=== PATIENT | female | born 1975 | race Caucasian/White ===

== ENCOUNTER → 2020-11-02 09:46 | Outpatient (CLI) | payer MEDICARE, SELFPAY | PROVIDERS: Visit Provider Physician Assistant Medical | DX: N39.0 Urinary tract infection, site not specified (principal) | CPT/HCPCS: 87086 ==

== ENCOUNTER → 2020-11-23 08:56 | Outpatient (CLI) | payer MEDICARE, SELFPAY ==
[2020-11-23 19:05] LABS: Add Manual Diff / Slide Review NO; Basophils Absolute Auto 100 /uL (0-100); Basophils Percent Auto 1.1 % (0-2); Eosinophils Absolute Auto 200 /uL (0-450); Eosinophils Percent Auto 2.8 % (2-4); Hematocrit 44.3 % (36-46); Hemoglobin 14.9 g/dL (12.0-16.0); Lymphocytes Absolute Auto 3500 /uL (1100-4500); Lymphocytes Percent Auto 43.6 % (25-40); Mean Corpuscular HGB Conc 33.7 % (30-36); Mean Corpuscular Hemoglobin 34.4 PG (26-34); Mean Corpuscular Volume 102.2 fL (80-100); Monocytes Absolute Auto 400 /uL (0-900); Monocytes Percent Auto 5.3 % (3-14); Neutrophils Absolute Auto 3800 /uL (1500-7000); Neutrophils Percent Auto 47.2 % (50-75); Platelet Count 335 X10^3/uL (150-400); Red Blood Cell Count 4.33 X10^6/uL (4.0-5.2); Red Cell Distribution Width 14.5 % (11.6-14.8)
[2020-11-23 19:13] LABS: Alanine Aminotransferase 25 IU/L (<35); Albumin 4.7 g/dL (3.5-5.0); Albumin Globulin Ratio 1.3 (1.0-2.8); Alkaline Phosphatase 104 U/L (38-126); Aspartate Aminotransferase 58 IU/L (14-36); BUN Creatinine Ratio 11.4 (6-22); Bilirubin Total 0.5 mg/dL (0.2-1.3); Blood Urea Nitrogen 13 mg/dL (7-17); Calcium 10.3 mg/dL (8.4-10.2); Carbon Dioxide 31 mmol/L (22-32); Chloride 102 mmol/L (98-107); Estimated Glomerular Filt Rate 51.1 mL/min (>60); Globulin 3.6 g/dL (1.7-4.1); Glucose 87 mg/dL (70-100); HEMOLYSIS < 15 (0-50); Potassium 4.5 mmol/L (3.4-5.1); Sodium 142 mmol/L (137-145); Total Protein 8.3 g/dL (6.3-8.2)
[2020-11-23 19:28] LABS: Hemoglobin A1C% w Est Avg Glu 4.8 % (4.0-6.0)
[2020-11-23 19:30] LABS: Free T4, Direct Thyroxine 0.08 ng/dL (0.78-2.19)
[2020-11-24 00:31] LABS: Thyroid Stimulating Hormone 107 uIU/mL (0.47-4.68)
== END ==
PROVIDERS: PCP Family Medicine; Visit Provider Family Medicine
DX: E03.9 Hypothyroidism, unspecified (principal); R73.09 Other abnormal glucose; I10 Essential (primary) hypertension
CPT/HCPCS: 80053; 83036; 84439; 84443; 85025

== ENCOUNTER → 2021-03-27 09:42 | Outpatient (CLI) | payer MEDICARE, SELFPAY ==
[2021-03-27 20:45] LABS: Free T4, Direct Thyroxine 0.53 ng/dL (0.78-2.19)
[2021-03-27 21:00] LABS: Thyroid Stimulating Hormone 42.3 uIU/mL (0.47-4.68)
== END ==
PROVIDERS: PCP Family Medicine; Visit Provider Obstetrics & Gynecology
DX: F41.9 Anxiety disorder, unspecified (principal); E03.9 Hypothyroidism, unspecified
CPT/HCPCS: 84439; 84443

== ENCOUNTER → 2021-09-05 12:22 | Outpatient (CLI) | payer MEDICARE, SELFPAY ==
--- NOTE | 2021-09-05 12:24 | DI.CT.S_ITS ---
PROCEDURE: CT ABDOMEN PELVIS W CON INDICATIONS: persistent abdominal pain TECHNIQUE: After the administration of oral and IV contrast, axial sections were acquired from the lung bases to the pubic symphysis. Coronal and sagittal reformats were performed. For radiation dose reduction, the following was used: automated exposure control, adjustment of mA and/or kV according to patient size. COMPARISON: Located Within [facility], CT, CT ABDOMEN PELVIS WITH CONTRAST, 11/10/2020, 14:43. FINDINGS: Image quality: Excellent. Lung bases: Unremarkable. Heart: No significant findings. ABDOMEN: Liver: Hepatic steatosis is seen. No discrete hepatic lesion. Gallbladder: Gallbladder is surgically absent. Biliary ducts: Unremarkable. Pancreas: Unremarkable. Spleen: No discrete splenic lesion is seen. Previously described varicosities in splenic hilum are again seen unchanged from prior study. Adrenal Glands: Unremarkable. Kidneys and Ureters: Unremarkable. Stomach and Bowel: Patient is status post gastric bypass surgery with postsurgical changes seen in epigastric region. There is no bowel obstruction . No definite abnormal bowel wall thickening. No mesenteric fat stranding. No abscess collection. Peritoneum: No abnormal intraperitoneal fluid. No free air. Ventral Wall: No hernia. Abdominal Nodes: No retroperitoneal or mesenteric adenopathy by size criteria. Vessels: Aorta and inferior vena cava are normal in size. PELVIS: Pelvic Organs: Patient is status post hysterectomy. Bladder: Unremarkable. Pelvic Nodes: No enlarged lymph nodes. Miscellaneous: No inguinal hernias are seen. Bones: No suspicious bony lesion. No vertebral body compression fracture. IMPRESSION: 1. No significant changes from previous study. No definite bowel wall thickening is seen. No bowel obstruction or mesenteric fat stranding. No free fluid or free air. 2. Prior cholecystectomy, gastric bypass surgery and hysterectomy. 3. Hepatic steatosis, no discrete hepatic lesion. 4. 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 Dictated by: Husam Andre M.D. on 09/05/2021 at 15:08 Approved by: Husam Andre M.D. on 09/05/2021 at 15:14
== END ==
LOC: CT 12:24
PROVIDERS: PCP Family Medicine; Referring Provider Family Medicine; Visit Provider Family Medicine
DX: K58.9 Irritable bowel syndrome, unspecified (principal); R10.13 Epigastric pain; K76.0 Fatty (change of) liver, not elsewhere classified; Z90.49 Acquired absence of other specified parts of digestive tract; Z98.84 Bariatric surgery status; Z90.710 Acquired absence of both cervix and uterus
CPT/HCPCS: 74177; Q9967

== ENCOUNTER → 2021-09-20 08:46 | Outpatient (CLI) | payer MEDICARE, SELFPAY ==
[2021-09-20 10:47] LABS: Adenovirus F 40/41 Not Detected (Not Detect); Astrovirus Not Detected (Not Detect); Campylobacter Not Detected (Not Detect); Clostridium difficile toxin AB Not Detected (Not Detect); Cryptosporidium Not Detected (Not Detect); Cyclospora cayetanensis Not Detected (Not Detect); Entamoeba histolytica Not Detected (Not Detect); Enteroaggregative E.coli Not Detected (Not Detect); Enteropathogenic E.coli Not Detected (Not Detect); Enterotoxigenic E.coli It/st Not Detected (Not Detect); Giardia lamblia Not Detected (Not Detect); Norovirus GI/GII Not Detected (Not Detect); Plesiomonsa shigelloides Not Detected (Not Detect); Rotavirus A Not Detected (Not Detect); Salmonella Not Detected (Not Detect); Sapovirus Not Detected (Not Detect); Shiga-like toxin-prod E.coli Not Detected (Not Detect); Shigella/Enteroinvasive E.coli Not Detected (Not Detect); Vibrio Not Detected (Not Detect); Vibrio cholerae Not Detected (Not Detect); Yersinia enterocolitica Not Detected (Not Detect)
[2021-09-23 14:12] LABS: Fecal Immunochemical Test Negative (Negative)
[2021-09-24 15:08] LABS: Lactoferrin, Fecal Quant 2.05 ug/mL(g) (0.00-7.24)
== END ==
PROVIDERS: PCP Family Medicine; Referring Provider Internal Medicine Gastroenterology; Visit Provider Internal Medicine Gastroenterology
DX: R10.9 Unspecified abdominal pain (principal); R19.7 Diarrhea, unspecified; R93.3 Abnormal findings on diagnostic imaging of other parts of digestive tract; R11.0 Nausea
CPT/HCPCS: 82274; 83631; 87507

== ENCOUNTER → 2021-10-08 11:27 | Outpatient (CLI) | payer MEDICARE, SELFPAY ==
[2021-10-08 19:11] LABS: Add Manual Diff / Slide Review NO; Basophils Absolute Auto 100 /uL (0-100); Basophils Percent Auto 1.1 % (0-2); Eosinophils Absolute Auto 200 /uL (0-450); Eosinophils Percent Auto 2.4 % (2-4); Hematocrit 36.2 % (36-46); Hemoglobin 12.4 g/dL (12.0-16.0); Lymphocytes Absolute Auto 2700 /uL (1100-4500); Lymphocytes Percent Auto 33.6 % (25-40); Mean Corpuscular HGB Conc 34.2 % (30-36); Mean Corpuscular Hemoglobin 34.8 PG (26-34); Mean Corpuscular Volume 101.8 fL (80-100); Monocytes Absolute Auto 600 /uL (0-900); Monocytes Percent Auto 7.4 % (3-14); Neutrophils Absolute Auto 4400 /uL (1500-7000); Neutrophils Percent Auto 55.5 % (50-75); Platelet Count 280 X10^3/uL (150-400); Red Blood Cell Count 3.55 X10^6/uL (4.0-5.2); Red Cell Distribution Width 13.4 % (11.6-14.8)
[2021-10-08 19:15] LABS: Alanine Aminotransferase 18 IU/L (<35); Albumin 4.6 g/dL (3.5-5.0); Albumin Globulin Ratio 1.5 (1.0-2.8); Alkaline Phosphatase 106 U/L (38-126); Aspartate Aminotransferase 34 IU/L (14-36); BUN Creatinine Ratio 19.8 (6-22); Bilirubin Total 0.9 mg/dL (0.2-1.3); Blood Urea Nitrogen 21 mg/dL (7-17); Calcium 10.5 mg/dL (8.4-10.2); Carbon Dioxide 29 mmol/L (22-32); Chloride 102 mmol/L (98-107); Estimated Glomerular Filt Rate 55.3 mL/min (>60); Globulin 3.1 g/dL (1.7-4.1); Glucose 138 mg/dL (70-100); HEMOLYSIS < 15 (0-50); Potassium 4.3 mmol/L (3.4-5.1); Sodium 138 mmol/L (137-145); Total Protein 7.7 g/dL (6.3-8.2)
== END ==
PROVIDERS: PCP Family Medicine; Visit Provider Family Medicine
DX: F43.0 Acute stress reaction (principal); R10.13 Epigastric pain; E03.9 Hypothyroidism, unspecified
CPT/HCPCS: 80053; 85025

== ENCOUNTER → 2021-10-29 11:42 | Outpatient (CLI) | payer MEDICARE, SELFPAY ==
[2021-10-29 19:14] LABS: COVID19 - ORCAS (NP or Nasal) Negative (Negative)
== END ==
PROVIDERS: PCP Family Medicine; Visit Provider Physician Assistant
DX: Z01.812 Encounter for preprocedural laboratory examination (principal)
CPT/HCPCS: C9803; U0003

== ENCOUNTER 2021-10-30 10:28 | Day surgery (SDC) | payer MEDICARE, SELFPAY ==
--- NOTE | 2021-10-30 | PATH_ITS ---
[facility] Accession Number: [id number] . 01 Material submitted: . PART A: small bowel - SMALL BOWEL PART B: colon - RANDOM COLON . 01 Clinical history: . A: RULE OUT CELIAC B: FOR DIARRHEA . 02 Diagnosis: A. Small Bowel, Biopsy: Duodenal mucosa with no diagnostic abnormality. Negative for active inflammation, features of sprue, dysplasia, or malignancy. . B. Random Colon, Biopsies: Colonic mucosa with no diagnostic abnormality. Negative for active, chronic, and microscopic colitis. Negative for dysplasia and malignancy. MRV 11/01/2021 1041 Local . 02 Electronically signed: . Kristofer Oliveira MD, PhD, Pathologist NPI- [id number] . 01 Gross description: . Part A: SMALL BOWEL: Received in formalin are 2 fragment(s) of vazquez, soft tissue measuring 0.3 x 0.2 x 0.1 cm to 0.2 x 0.1 x 0.1 cm submitted entirely in 1 cassette(s) Part B: RANDOM COLON: Received in formalin are multiple fragment(s) of vazquez, soft tissue measuring 1.9 x 0.5 x 0.1 cm in aggregate submitted entirely in 1 cassette(s) /CPE 10/31/2021 0651 Local . 02 Pathologist provided ICD-10: R10.9, R19.7 . 02 CPT . 110425, 414098 Specimen Comment: A courtesy copy of this report has been sent to [phone], [phone] Specimen Comment: [id number] Performed at: 01 [facility] [address] [place] [address] [address] [facility] [place], [place], [place] [id number] MD Bud Matos MD Phone: [phone] Performed at: 02 [facility] [place] [address] [place] [id number] MD Hannah Strong MD Phone: [phone]
[2021-10-30 10:48] VITALS: BP 152/99; PULSE 78; RESP 18; TEMP 36.6; O2SAT 98; BMI 41.3
[2021-10-30] MEDS: SODIUM CHLORIDE 0.9% 1,000 ML 84 ML IV (11:07)
--- NOTE | 2021-10-30 11:30 | P.HP_ITS ---
History of Present Illness History of Present Illness Chief complaint: [facility] [place] Narrative: Abdominal pain and loose stools with history of gastric sleeve and possible thickening of the cecum and terminal ileum on CT scan. Patient History Medical History (Updated 10/29/21 @ 15:11 by Pamela Pickett RN) Acquired hypothyroidism Anemia Chicken pox Dyspepsia Fibromyalgia Hearing loss History of asthma Irritable bowel disease Nausea Otalgia Renal insufficiency Vision disorder Surgical History Anesthesia H/O bariatric surgery H/O: hysterectomy (~2003) History of section History of cholecystectomy (~2001) History of eye surgery (~1976) History of hysterectomy for benign disease History of mandibular surgery (~1988) S/P removal of left ovary (~2003) [place] teeth extracted Family & Social History Family History Father Prostate cancer History of heart disease S/P triple vessel bypass Vocal cord disease Mother Hyperlipidemia History of heart attack History of heart disease Brother Borderline schizophrenia Mental health problem Grandfather History of heart disease History of heart attack Grandmother Colon cancer Grandfather No problems noted. Social History: household members significant other Tobacco & Substance use: Smoking Status Never smoker alcohol intake frequency a few times a week Substance Use Type does not use Meds Home Medications and Allergies Home Medications Medication Instructions Recorded Confirmed Type losartan 100 1 tab PO DAILY #90 tab 12/07/20 10/30/21 Rx mg-hydrochlorothiazide 12.5 mg tablet (Hyzaar) zolpidem 10 mg tablet See Rx Instructions .ROUTE 07/22/21 10/30/21 Rx .COMPLEX #30 tab dicyclomine 10 mg capsule 10 mg PO TID #30 cap 08/02/21 10/30/21 Rx levothyroxine 75 mcg capsule 75 mcg PO DAILY #30 cap 08/29/21 10/30/21 Rx naproxen 500 mg tablet 500 mg PO BID #60 tab 10/11/21 10/30/21 Rx Tums 10/29/21 10/29/21 History aspirin 81 mg PO DAILY 10/30/21 10/30/21 History Allergies Allergy/AdvReac Type Severity Reaction Status Date / Time Penicillins AdvReac Unknown RASH AND Verified 10/30/21 10:41 OTHER NONSPECIFIC SKIN ERUPTION Exam Vital Signs (past 8 hours): - 10/30/21 10:48 Temperature 98 F Pulse Rate 78 Respiratory Rate 18 Blood Pressure 152/99 H Pulse Oximetry 98 Oxygen Delivery Method Room Air Narrative Exam Narrative: Oropharynx free of lesions Chest clear to auscultation percussion Cardiac exam reveals no S3 or murmur Assessment & Plan Assessment & Plan narrative: Loose stools with CT scan showing thickening of the terminal ileum and cecum. Also history of intermittent abdominal pain. Known history of gastric sleeve. Need for EGD and colonoscopy to help sort out symptoms and findings. Risks, benefits, alternatives have been explained. Time Spent With Patient Critical Care time: I spent a total of [] minutes of critical care time on this patient's care today; this time is exclusive of procedural time.
--- NOTE | 2021-10-30 11:32 | P.OP.EGD&C_ITS ---
Operative Date/Time/Diagnoses Date of procedure: 10/30/21 Pre-op diagnosis: See indication and findings Procedure & Clinicians Study performed: EGD and colonoscopy Indications: Diarrhea with abnormal CT scan with thickening of the terminal ileum and cecum. Known history of gastric sleeve. Surgeon: Maria Dolores Roman Procedure Notes Procedure in detail: After informed consent was obtained the patient was placed left lateral decubitus position. The video upper scope was placed into the oropharynx and with the patient's help swelled into the esophagus. The esophagus stomach and duodenum were carefully examined. On withdrawal, retroflexed view the GE junction was performed. The scope was removed. The patient tolerated procedure well. The patient was then turned and the colonoscope substituted. This was introduced the rectum slowly advanced to the cecum. On slow withdrawal mucosa was carefully examined. The scope was removed. The patient tolerated procedure well. Blood loss none Complications none Sedation mac Findings EGD 1. Severe esophagitis beginning with isolated erosions at 29 cm progressing to thick and wide ulcerations at 31 cm common eating in near circumferential erosions at 33 cm. Lower esophageal sphincter was wide open 2. Findings of gastric sleeve were present without any anastomotic ulcerations. Pylorus was intact 3. Normal duodenal bulb and sweep though proximal duodenum seems somewhat dilated. Biopsies were taken to rule out celiac Colonoscopy 1. Normal colonoscopy to cecum. Random biopsies taken to rule out microscopic colitis 2. Able to barely intubate the terminal ileum and catch a glimpse of normal appearing mucosa. Patient should follow-up by telemedicine or in person in [place] with Dr. Virk. She should be on some type of acid reducing medication such as omeprazole 20 mg b.i.d..
[2021-10-30 12:36] VITALS: BP 118/69; PULSE 73; RESP 19; TEMP 37.2; O2SAT 100
[2021-10-30 12:41] VITALS: BP 127/83; PULSE 72; RESP 18; O2SAT 97
[2021-10-30 12:46] VITALS: BP 128/80; PULSE 71; RESP 18; O2SAT 96
[2021-10-30 12:52] VITALS: BP 134/88; PULSE 67; RESP 18; TEMP 36.6; O2SAT 99
[2021-10-30 13:01] VITALS: BP 152/86; PULSE 66; RESP 15; O2SAT 99
== END 2021-10-30 13:24 | disposition home or self-care (01) ==
PROVIDERS: PCP Family Medicine; Referring Provider Internal Medicine Gastroenterology; Visit Provider Internal Medicine Gastroenterology
PROC: 0DJ08ZZ Inspection of Upper Intestinal Tract, Via Natural or Artificial Opening Endoscopic (ICD-10-PCS; CPT 43235; principal; 2021-10-30 12:30)
PROC: 0DJD8ZZ Inspection of Lower Intestinal Tract, Via Natural or Artificial Opening Endoscopic (ICD-10-PCS; CPT 45378; 2021-10-30 12:30)
DX: R19.7 Diarrhea, unspecified (principal); R10.9 Unspecified abdominal pain; R93.3 Abnormal findings on diagnostic imaging of other parts of digestive tract; Z98.84 Bariatric surgery status; K22.10 Ulcer of esophagus without bleeding; I10 Essential (primary) hypertension; J45.909 Unspecified asthma, uncomplicated
CPT/HCPCS: 45380; 43239; J2250; J2405; J2704

== ENCOUNTER → 2021-11-11 10:30 | Outpatient (CLI) | payer MEDICARE, SELFPAY ==
[2021-11-11 19:16] LABS: Free T4, Direct Thyroxine 0.82 ng/dL (0.78-2.19)
[2021-11-11 19:24] LABS: Hemoglobin A1C% w Est Avg Glu 4.8 % (4.0-6.0)
[2021-11-13 10:07] LABS: Alanine Aminotransferase 23 IU/L (<35); Albumin 4.4 g/dL (3.5-5.0); Albumin Globulin Ratio 1.4 (1.0-2.8); Alkaline Phosphatase 126 U/L (38-126); Aspartate Aminotransferase 37 IU/L (14-36); BUN Creatinine Ratio 18.5 (6-22); Bilirubin Total 0.4 mg/dL (0.2-1.3); Blood Urea Nitrogen 17 mg/dL (7-17); Calcium 9.9 mg/dL (8.4-10.2); Carbon Dioxide 28 mmol/L (22-32); Chloride 105 mmol/L (98-107); Estimated Glomerular Filt Rate > 60 mL/min (>60); Globulin 3.1 g/dL (1.7-4.1); Glucose 86 mg/dL (70-100); HEMOLYSIS < 15 (0-50); Potassium 4.5 mmol/L (3.4-5.1); Sodium 142 mmol/L (137-145); Total Protein 7.5 g/dL (6.3-8.2)
== END ==
PROVIDERS: PCP Family Medicine; Visit Provider Family Medicine
DX: E03.9 Hypothyroidism, unspecified (principal); R73.9 Hyperglycemia, unspecified; I10 Essential (primary) hypertension
CPT/HCPCS: 80053; 83036; 84439; 84443

== ENCOUNTER → 2023-06-23 08:42 | Outpatient (CLI) | payer SELFPAY ==
[2023-06-23 20:29] LABS: HEMOLYSIS < 15 (0-50); Iron 156 ug/dL (37-170)
[2023-06-23 20:32] LABS: Add Manual Diff / Slide Review NO; Basophils Absolute Auto 100 /uL (0-100); Basophils Percent Auto 1.5 % (0-2); Eosinophils Absolute Auto 200 /uL (0-450); Hematocrit 36.8 % (36-46); Hemoglobin 12.8 g/dL (12.0-16.0); Lymphocytes Absolute Auto 2800 /uL (1100-4500); Mean Corpuscular HGB Conc 34.6 % (30-36); Mean Corpuscular Hemoglobin 37.2 PG (26-34); Mean Corpuscular Volume 107.5 fL (80-100); Monocytes Absolute Auto 500 /uL (0-900); Monocytes Percent Auto 7.9 % (3-14); Neutrophils Absolute Auto 3300 /uL (1500-7000); Neutrophils Percent Auto 47.6 % (50-75); Platelet Count 280 X10^3/uL (150-400); Red Blood Cell Count 3.43 X10^6/uL (4.0-5.2); Red Cell Distribution Width 12.7 % (11.6-14.8); White Blood Cell Count 6.9 X10^3/uL (4.5-11.0)
[2023-06-23 20:42] LABS: Alanine Aminotransferase 48 IU/L (<35); Albumin 4.9 g/dL (3.5-5.0); Albumin Globulin Ratio 1.4 (1.0-2.8); Alkaline Phosphatase 107 U/L (38-126); Aspartate Aminotransferase 106 IU/L (14-36); BUN Creatinine Ratio 15.3 (6-22); Blood Urea Nitrogen 15 mg/dL (7-17); Calcium 10.6 mg/dL (8.4-10.2); Carbon Dioxide 27 mmol/L (22-32); Chloride 99 mmol/L (98-107); Cholesterol 253 mg/dL (140-199); Estimated Glomerular Filt Rate > 60 mL/min (>60); Globulin 3.4 g/dL (1.7-4.1); Glucose 93 mg/dL (70-100); HDL Cholesterol 106 mg/dL (40-60); HEMOLYSIS < 15 (0-50); LDL Cholesterol Calculated 124 mg/dL (<100); Potassium 4.4 mmol/L (3.4-5.1); Sodium 136 mmol/L (137-145); Total Protein 8.3 g/dL (6.3-8.2); Triglycerides 113 mg/dL (35-150)
[2023-06-23 20:43] LABS: Hemoglobin A1C% w Est Avg Glu 4.9 % (4.0-6.0); Percent Iron Saturation 42 % (15-50); Total Iron Binding Capacity 368 ug/dL (265-497); Transferrin 349 mg/dL (206-381)
[2023-06-23 20:54] LABS: Vitamin D 25 Hydroxy (D3) 34.7 ng/mL (30.0-100.0)
[2023-06-23 21:04] LABS: Thyroid Stimulating Hormone 91.6 uIU/mL (0.47-4.68)
[2023-06-23 21:18] LABS: Ferritin 38 ng/mL (11-264)
[2023-06-23 21:51] LABS: Folate 5.7 ng/mL (2.76-20.0); Vitamin B12 Reflex MMA if <400 279 pg/mL (239-931)
[2023-06-30 06:40] LABS: Vitamin B1 91.8 nmol/L (66.5-200.0)
[2023-06-30 06:40] LABS: Methylmalonic Acid,Serum 89 nmol/L (0-378)
[2023-07-06 07:08] LABS: Vitamin A 143.6 ug/dL (20.1-62.0)
== END ==
PROVIDERS: PCP Family Medicine; Visit Provider Family Medicine
DX: K90.9 Intestinal malabsorption, unspecified (principal); I10 Essential (primary) hypertension; R73.9 Hyperglycemia, unspecified; K20.90 Esophagitis, unspecified without bleeding; K22.10 Ulcer of esophagus without bleeding; Z98.84 Bariatric surgery status; E03.9 Hypothyroidism, unspecified; G62.9 Polyneuropathy, unspecified
CPT/HCPCS: 80053; 80061; 82306; 82607; 82728; 82746; 83036; 83540; 83550; 83921; 84425; 84443; 84590; 85025

== ENCOUNTER → 2023-10-21 13:06 | Outpatient (CLI) | payer OTHER, SELFPAY ==
[2023-10-21 19:40] LABS: Add Manual Diff / Slide Review NO; Basophils Absolute Auto 100 /uL (0-100); Basophils Percent Auto 0.8 % (0-2); Eosinophils Absolute Auto 100 /uL (0-450); Eosinophils Percent Auto 1.9 % (2-4); Hematocrit 36.9 % (36-46); Hemoglobin 12.4 g/dL (12.0-16.0); Lymphocytes Absolute Auto 3100 /uL (1100-4500); Lymphocytes Percent Auto 40.6 % (25-40); Mean Corpuscular HGB Conc 33.7 % (30-36); Mean Corpuscular Hemoglobin 35.5 PG (26-34); Mean Corpuscular Volume 105.2 fL (80-100); Monocytes Absolute Auto 800 /uL (0-900); Monocytes Percent Auto 10.2 % (3-14); Neutrophils Absolute Auto 3600 /uL (1500-7000); Neutrophils Percent Auto 46.5 % (50-75); Platelet Count 224 X10^3/uL (150-400); Red Blood Cell Count 3.51 X10^6/uL (4.0-5.2); Red Cell Distribution Width 12.8 % (11.6-14.8); White Blood Cell Count 7.7 X10^3/uL (4.5-11.0)
[2023-10-21 19:42] LABS: HEMOLYSIS < 15 (0-50); Iron 153 ug/dL (37-170)
[2023-10-21 19:47] LABS: Alanine Aminotransferase 38 IU/L (<35); Albumin 4.3 g/dL (3.5-5.0); Albumin Globulin Ratio 1.4 (1.0-2.8); Alkaline Phosphatase 167 U/L (38-126); Aspartate Aminotransferase 60 IU/L (14-36); BUN Creatinine Ratio 22.6 (6-22); Bilirubin Total 0.7 mg/dL (0.2-1.3); Blood Urea Nitrogen 21 mg/dL (7-17); Calcium 10.3 mg/dL (8.4-10.2); Carbon Dioxide 30 mmol/L (22-32); Chloride 105 mmol/L (98-107); Estimated Glomerular Filt Rate > 60 mL/min (>60); Globulin 3.1 g/dL (1.7-4.1); Glucose 98 mg/dL (70-100); HEMOLYSIS < 15 (0-50); Potassium 4.5 mmol/L (3.4-5.1); Sodium 141 mmol/L (137-145); Total Protein 7.4 g/dL (6.3-8.2)
[2023-10-21 19:53] LABS: Percent Iron Saturation 56 % (15-50); Total Iron Binding Capacity 273 ug/dL (265-497); Transferrin 255 mg/dL (206-381)
[2023-10-21 20:15] LABS: Thyroid Stimulating Hormone 2.53 uIU/mL (0.47-4.68)
[2023-10-21 20:19] LABS: Ferritin 48 ng/mL (11-264)
[2023-10-22 18:04] LABS: Hepatitis B Surface Antigen NEGATIVE s/c (NEGATIVE)
[2023-10-22 18:18] LABS: Hep C Virus Ab w/Reflex Quant NEGATIVE s/c (NEGATIVE)
[2023-10-23 05:12] LABS: Hepatitis B Core Antibody Negative (Negative); Hepatitis B Surf Ab Qualitativ Non Reactive (.)
[2023-10-28 16:08] LABS: ANA Screen, IFA Negative (.)
== END ==
PROVIDERS: PCP Family Medicine; Visit Provider Family Medicine
DX: E53.8 Deficiency of other specified B group vitamins (principal); R79.89 Other specified abnormal findings of blood chemistry; I10 Essential (primary) hypertension; E03.9 Hypothyroidism, unspecified; E66.01 Morbid (severe) obesity due to excess calories; Z68.41 Body mass index [BMI] 40.0-44.9, adult; K90.9 Intestinal malabsorption, unspecified; Z98.84 Bariatric surgery status; J45.909 Unspecified asthma, uncomplicated; D75.89 Other specified diseases of blood and blood-forming organs; G62.9 Polyneuropathy, unspecified
CPT/HCPCS: 80053; 82728; 83540; 83550; 84443; 85025; 86038; 86704; 86706; 86803; 87340

== ENCOUNTER → 2023-12-17 12:42 | Outpatient (CLI) | payer OTHER, SELFPAY ==
--- NOTE | 2023-12-17 12:43 | DI.RAD.S_ITS ---
PROCEDURE: XR DEXA AXIAL SKELETON INDICATIONS: history of femur fracture and bariatric surgery, early HYST COMPARISON: None. FINDINGS: Lumbar Spine: Bone mineral density 0.928 g/cm2, T score -1.1. Left Hip: Bone mineral density 0.894 g/cm2, T score -0.4. Left Femoral Neck: Bone mineral density 0.648 g/cm2, T score -1.8. Right Hip: Bone mineral density 0.923 g/cm2, T score -0.2. Right Femoral Neck: Bone mineral density 0.630 g/cm2, T score -2.0. Fracture Risk Calculation (when applicable): 10-year fracture risk of a major osteoporotic fracture 8.7% and of a hip fracture 1.0 %. (T score greater or equal to -1.0 to: NORMAL) (T score from -1.1 to -2.4: OSTEOPENIA) (T score less than or equal to -2.5: OSTEOPOROSIS) IMPRESSION: Osteopenia. Follow-up guidelines as follows: Osteoporosis: Consider a repeat DEXA and Vertebral Fracture Assessment (VFA) exam in 2 years or sooner if medically necessary, to reassess this patient's status. Osteopenia: Consider a repeat DEXA in 2-3 years to reassess this patient's status, or if there is a new clinical indication. Normal: Consider a repeat DEXA in 5 years or sooner, or if there is a new clinical indication. All treatment decisions require clinical judgment and consideration of individual patient factors, including patient preferences, comorbidities, previous drug use, risk factors not captured in the FRAX model (e.g., frailty, falls, vitamin D deficiency, increased bone turnover, interval significant decline in bone density ) and possible under- or over-estimation of fracture risk by FRAX. In addition, the NOF Guide recommends that FDA-approved medical therapies be considered in postmenopausal women and men age >= 50 years with a: * Hip or vertebral (clinical or morphometric) fracture * T-score of <=-2.5 at the spine or hip * Ten-year fracture probability by FRAX of >= 3% for hip fracture or >=20% for major osteoporotic fracture. People with diagnosed cases of osteoporosis or at high risk for fracture should have regular bone mineral density tests. For patients eligible for Medicare, routine testing is allowed once every 2 years. The testing frequency can be increased to one year for patients who have rapidly progressing disease, those who are receiving or discontinuing medical therapy to restore bone mass, or have additional risk factors. Dictated by: Frank Guardado M.D. on 12/18/2023 at 9:22 Approved by: Frank Guardado M.D. on 12/18/2023 at 9:24
--- NOTE | 2023-12-17 12:43 | DI.US.S_ITS ---
PROCEDURE: US EXTREMITY NONVASC LOWER RT INDICATIONS: POSTERIOR/LATERAL RIGHT ANKLE LUMP TECHNIQUE: Real-time scanning was performed of the right ankle, with image documentation. COMPARISON: None. FINDINGS: At the palpable area of concern at the posterior lateral right ankle, there is a lobular fluid collection measuring approximately 2.9 x 0.7 x 1.2 cm in the subcutaneous tissues. No internal left lower seen. IMPRESSION: Cystic structure is seen at the palpable area of concern that may represent a ganglion cyst, or other nonspecific cystic lesion. MRI could be performed for further characterization if indicated clinically. Approved by: Haim Erwin M.D. on 12/17/2023 at 21:04
== END ==
PROVIDERS: PCP Family Medicine; Referring Provider Family Medicine; Visit Provider Family Medicine
DX: Z78.0 Asymptomatic menopausal state (principal); R22.40 Localized swelling, mass and lump, unspecified lower limb; Z87.81 Personal history of (healed) traumatic fracture; Z13.820 Encounter for screening for osteoporosis; M85.89 Other specified disorders of bone density and structure, multiple sites; Z98.84 Bariatric surgery status
CPT/HCPCS: 76882; 77080

== ENCOUNTER → 2023-12-24 13:49 | Outpatient (CLI) | payer OTHER, SELFPAY ==
[2023-12-24 21:51] LABS: HEMOLYSIS < 15 (0-50); Iron 101 ug/dL (37-170)
[2023-12-24 22:04] LABS: Percent Iron Saturation 41 % (15-50); Total Iron Binding Capacity 247 ug/dL (265-497); Transferrin 225 mg/dL (206-381)
[2023-12-24 22:06] LABS: Follicle Stimulating Hormone 50.5 mIU/mL
[2023-12-24 22:23] LABS: Thyroid Stimulating Hormone 29.1 uIU/mL (0.47-4.68)
[2023-12-24 22:53] LABS: Vitamin B12 Reflex MMA if <400 409 pg/mL (239-931)
[2023-12-29 07:21] LABS: Calcium 10.2 mg/dL (8.7-10.2); Free Kappa Lt Chains, Serum 22.1 mg/L (3.3-19.4); Parathyroid Hormone, Intact 60 pg/mL (15-65)
[2023-12-29 07:22] LABS: Albumin 3.5 g/dL (2.9-4.4); Alpha-1-Globulin 0.2 g/dL (0.0-0.4); Alpha-2-Globulin 0.8 g/dL (0.4-1.0); Gamma Globulin 1.1 g/dL (0.4-1.8); Globulin Total 3.2 g/dL (2.2-3.9); Protein, Total 6.7 g/dL (6.0-8.5)
== END ==
PROVIDERS: PCP Family Medicine; Visit Provider Family Medicine
DX: E03.9 Hypothyroidism, unspecified (principal); D75.89 Other specified diseases of blood and blood-forming organs; E53.8 Deficiency of other specified B group vitamins; R79.89 Other specified abnormal findings of blood chemistry; I10 Essential (primary) hypertension; E83.52 Hypercalcemia; K52.9 Noninfective gastroenteritis and colitis, unspecified
CPT/HCPCS: 82310; 82607; 83001; 83540; 83550; 83883; 83970; 84155; 84165; 84443

== ENCOUNTER → 2024-01-30 13:30 | Outpatient (CLI) | payer OTHER, SELFPAY ==
--- NOTE | 2024-01-30 13:32 | DI.MRI.S_ITS ---
PROCEDURE: MR ANKLE RT WO/W CON INDICATIONS: WORSEING/ENLARGING RT POSTERIOR LATERAL ANKLE MASS TECHNIQUE: Noncontrast sagittal T1 spin echo and T2 fast spin echo with fat saturation, axial proton density fast spin echo and T2 fast spin echo with fat saturation, axial T1 spin echo with fat saturation, coronal T1 spin echo and T2 fast spin echo with fat saturation through the ankle/hindfoot. Post-contrast axial, coronal, and sagittal T1 spin echo with fat saturation through the ankle/hindfoot. COMPARISON: None. FINDINGS: Image quality: Excellent. Bones and soft tissues: No acute trabecular bone injury or fracture. No hindfoot coalitions. No osteochondral injuries of the talar dome. Lobular ganglion cyst measuring up to 3.7 x 3.0 x 1.1 cm is seen extending posteriorly from the posterolateral mortise joint into the subcutaneous tissues corresponding to the palpable abnormality as indicated by skin marker. Ganglion cyst lateral to the cuboid measures 1.6 by 1.0 x 0.7 cm. Ganglion cyst is also seen arising from the lateral sinus tarsi up to 1.3 cm. 0.7 cm ganglion cyst posterior medial to the subtalar joint. 0.7 cm ganglion cyst adjacent to the medial naviculocuneiform articulations. No solid soft tissue mass. Medial structures: The deltoid ligament and the spring ligament complex are intact. The posterior tibialis, flexor digitorum longus, and flexor hallucis longus tendons are intact. The posterior tibial neurovascular bundle appears normal within the tarsal tunnel, without extrinsic mass effect. Lateral structures: There is chronic complete tearing of the anterior talofibular ligament. The calcaneofibular ligament and posterior talofibular ligament appear to be intact. The anterior and posterior tibiofibular ligaments are intact. The peroneus longus and brevis tendons demonstrate normal location and morphology. The sinus tarsi demonstrates normal fatty signal. Anterior structures: The tibialis anterior, extensor hallucis longus, and extensor digitorum longus tendons appear intact. The dorsal talonavicular ligament appears intact. Posterior and plantar structures: Achilles tendon is intact. The proximal plantar fascia is thickened without surrounding edema. No abductor digiti minimi muscle atrophy to suggest [place] neuropathy. IMPRESSION: 1. Lobular ganglion cyst measuring up to 3.7 cm is seen arising from the posterior mortise joint or subtalar joint and extending into the subcutaneous tissues posterior lateral to the ankle and corresponding the palpable abnormality. 2. Multiple additional ganglion cysts are seen surrounding the midfoot hindfoot. 3. Chronic complete tearing of the anterior talofibular ligament. 4. Mild chronic proximal plantar fasciitis. Approved by: Haim Erwin M.D. on 02/01/2024 at 15:36
== END ==
PROVIDERS: PCP Family Medicine; Referring Provider Orthopaedic Surgery Foot and Ankle Surgery; Visit Provider Orthopaedic Surgery Foot and Ankle Surgery
DX: S93.491A Sprain of other ligament of right ankle, initial encounter (principal); R22.41 Localized swelling, mass and lump, right lower limb; M67.471 Ganglion, right ankle and foot; M72.2 Plantar fascial fibromatosis
CPT/HCPCS: 73723; A9579

== ENCOUNTER → 2024-08-01 13:04 | Outpatient (CLI) | payer BC, SELFPAY ==
[2024-08-01 18:25] LABS: Prothrombin Time 11.1 SECONDS (9.4-12.5)
[2024-08-01 18:28] LABS: PTT Partial Thromboplastin Tim 22 SECONDS (25.1-36.5)
[2024-08-01 18:45] LABS: Add Manual Diff / Slide Review NO; Basophils Absolute Auto 100 /uL (0-100); Basophils Percent Auto 1.1 % (0-2); Eosinophils Absolute Auto 300 /uL (0-450); Eosinophils Percent Auto 4.3 % (2-4); Hematocrit 40.3 % (36-46); Hemoglobin 13.8 g/dL (12.0-16.0); Lymphocytes Absolute Auto 2100 /uL (1100-4500); Lymphocytes Percent Auto 26.5 % (25-40); Mean Corpuscular HGB Conc 34.2 % (30-36); Mean Corpuscular Hemoglobin 35.4 PG (26-34); Mean Corpuscular Volume 103.4 fL (80-100); Monocytes Absolute Auto 500 /uL (0-900); Monocytes Percent Auto 6.1 % (3-14); Neutrophils Absolute Auto 4800 /uL (1500-7000); Platelet Count 363 X10^3/uL (150-400); Red Blood Cell Count 3.89 X10^6/uL (4.0-5.2); White Blood Cell Count 7.8 X10^3/uL (4.5-11.0)
[2024-08-01 18:50] LABS: Alanine Aminotransferase 91 IU/L (<35); Albumin 4.2 g/dL (3.5-5.0); Albumin Globulin Ratio 1.5 (1.0-2.8); Alkaline Phosphatase 175 U/L (38-126); Aspartate Aminotransferase 80 IU/L (14-36); BUN Creatinine Ratio 21.8 (6-22); Bilirubin Total 0.9 mg/dL (0.2-1.3); Blood Urea Nitrogen 19 mg/dL (7-17); Calcium 10.8 mg/dL (8.4-10.2); Carbon Dioxide 28 mmol/L (22-32); Chloride 103 mmol/L (98-107); Estimated Glomerular Filt Rate > 60 mL/min (>60); Globulin 2.8 g/dL (1.7-4.1); Glucose 145 mg/dL (70-100); HEMOLYSIS < 15 (0-50); Potassium 4.5 mmol/L (3.4-5.1); Sodium 137 mmol/L (137-145)
[2024-08-01 19:45] LABS: Vitamin B12 794 pg/mL (239-931)
== END ==
PROVIDERS: PCP Family Medicine; Visit Provider Family Medicine
DX: D75.89 Other specified diseases of blood and blood-forming organs (principal); E83.52 Hypercalcemia; R79.89 Other specified abnormal findings of blood chemistry; E03.9 Hypothyroidism, unspecified; I10 Essential (primary) hypertension
CPT/HCPCS: 80053; 82607; 84443; 85025; 85610; 85730

== ENCOUNTER → 2024-08-23 13:21 | Outpatient (CLI) | payer BC, SELFPAY ==
[2024-08-23 18:47] LABS: Alanine Aminotransferase 22 IU/L (<35); Albumin 4.4 g/dL (3.5-5.0); Albumin Globulin Ratio 1.5 (1.0-2.8); Alkaline Phosphatase 117 U/L (38-126); Aspartate Aminotransferase 39 IU/L (14-36); Bilirubin Total 0.6 mg/dL (0.2-1.3); Bilirubin Unconjugated 0.2 mg/dL (0.0-1.1); Gamma Glutamyl Transpeptidase 40 U/L (12-43); HEMOLYSIS < 15 (0-50); Total Protein 7.4 g/dL (6.3-8.2)
[2024-08-23 18:58] LABS: Vitamin D 25 Hydroxy (D3) 44.9 ng/mL (30.0-100.0)
[2024-08-24 23:08] LABS: HBsAg Screen Negative (Negative); Hepatitis A Antibody IgM Negative (Negative); Hepatitis B Core Antibody IgM Negative (Negative); Hepatitis C Antibody Non Reactive (Non Reactive)
[2024-08-25 08:40] LABS: Calcium 10.5 mg/dL (8.7-10.2); Parathyroid Hormone, Intact 25 pg/mL (15-65)
== END ==
PROVIDERS: PCP Family Medicine; Visit Provider Family Medicine
DX: E66.01 Morbid (severe) obesity due to excess calories (principal); Z68.41 Body mass index [BMI] 40.0-44.9, adult; Z98.84 Bariatric surgery status; E83.52 Hypercalcemia; E67.0 Hypervitaminosis A; M85.80 Other specified disorders of bone density and structure, unspecified site; E53.8 Deficiency of other specified B group vitamins; F10.20 Alcohol dependence, uncomplicated; R73.9 Hyperglycemia, unspecified; R79.89 Other specified abnormal findings of blood chemistry
CPT/HCPCS: 80074; 80076; 82306; 82310; 82977; 83036; 83970; 84590

== ENCOUNTER 2024-12-02 13:32 | Emergency (ER) | payer BC, SELFPAY ==
[2024-12-02] VITALS (14 sets, daily range): BP systolic 160–198; BP diastolic 79–149; PULSE 66–89; RESP 16; TEMP 36.6; O2SAT 97–100; BMI 39.6
--- NOTE | 2024-12-02 14:19 | EKG_ITS ---
[place] [id number] [place] [id number] Test Date: 2024-12-02 Pat Name: Carolyn Bhatia Department: [facility] Room: Gender: Female Inspection Engineer: EDENILSON : 1975 Requested By: Order Number: [id number] Reading MD: Ramos Zheng MD Measurements Intervals [place] Rate: 72 P: 12 ND: 154 QRS: 9 QRSD: 80 T: 2 QT: 394 QTc: 431 Interpretive Statements Normal sinus rhythm Cannot rule out Inferior infarct , age undetermined Electronically Signed On 12-02-2024 16:37:17 PDT by Ramos Zheng MD
[2024-12-02] MEDS: ONDANSETRON 4 MG/2 ML INJ IV (14:36)
[2024-12-02 14:49] LABS: Add Manual Diff / Slide Review NO; Basophils Absolute Auto 100 /uL (0-100); Basophils Percent Auto 0.6 % (0-2); Eosinophils Absolute Auto 0 /uL (0-450); Eosinophils Percent Auto 0.1 % (2-4); Hematocrit 40.1 % (36-46); Hemoglobin 13.8 g/dL (12.0-16.0); Lymphocytes Absolute Auto 1800 /uL (1100-4500); Lymphocytes Percent Auto 22.3 % (25-40); Mean Corpuscular HGB Conc 34.4 % (30-36); Mean Corpuscular Hemoglobin 34.8 PG (26-34); Mean Corpuscular Volume 101.2 fL (80-100); Monocytes Absolute Auto 400 /uL (0-900); Neutrophils Absolute Auto 5900 /uL (1500-7000); Platelet Count 278 X10^3/uL (150-400); Red Blood Cell Count 3.96 X10^6/uL (4.0-5.2); Red Cell Distribution Width 13.6 % (11.6-14.8); White Blood Cell Count 8.2 X10^3/uL (4.5-11.0)
[2024-12-02 14:58] LABS: Alanine Aminotransferase 59 IU/L (<35); Albumin Globulin Ratio 1.5 (1.0-2.8); Alkaline Phosphatase 233 U/L (38-126); Aspartate Aminotransferase 89 IU/L (14-36); BUN Creatinine Ratio 25.3 (6-22); Blood Urea Nitrogen 20 mg/dL (7-17); Calcium 11.8 mg/dL (8.4-10.2); Carbon Dioxide 27 mmol/L (22-32); Chloride 102 mmol/L (98-107); Estimated Glomerular Filt Rate > 60 mL/min (>60); Globulin 3.4 g/dL (1.7-4.1); Glucose 109 mg/dL (70-99); HEMOLYSIS < 15 (0-50); Lipase 51 U/L (23-300); Sodium 139 mmol/L (137-145); Total Protein 8.4 g/dL (6.3-8.2)
[2024-12-02 15:21] LABS: Ethanol (ETOH) < 10 mg/dL
--- NOTE | 2024-12-02 16:18 | CM.SWNOTE ---
ED BAKER BREAD Assessment BAKER BREAD - Sports Physician Assessment BAKER BREAD/Sports Physician Assessment Time Spent with Patient Start date 12/02/24 Visit Start Time 15:40 End date 12/02/24 Visit End Time 15:55 Total time Care Management spent on 15 minutes patient visit-in minutes Substance Abuse Screening Include Onset, Duration, Intensity Presenting Problem Patient presents to ED per recommendation from PCP due to concern to rule out pancreatitis, alcohol hepitis or esophageal ulcers and etoh withdrawals. Patient presents with concern for vomiting, nausea, dry heaving and headache. Patient states her last drink was yesterday afternoon. Patient states she usually drinks 9-18 glasses of wine a day (1-2 wine boxes a day). Patient endorses plan to stop drinking and interest in detox. Precipitating Event(s) Patient states that her coworkers had an intervention with her the other day and they are concerned about her drinking. Patient states she has been experiencing Depression and Anxiety as her mother and her father is currently sick in [place]. Patient Strengths Patient is seeking help, patient has good support from spouse and coworker friends. Current Behavioral Health Provider(s) Patient states she is in the Include Facility, Provider, Ph. # process of getting set up with a therapist on [facility] through the resource center. Family Hx of Behavioral Abuse Patient's mother recently . Rehab Facilities? ((Date(s), Location(s) No hx ) History of Withdrawal? Seizures? Patient endorses concern for vomiting, dry heaving, tiredness, weird feeling in mouth and headache. Patient denies seizure hx. Longest Period of Sobriety Patient endorses her longest period of sobriety was 40 days a few months ago. Psychosocial information & Support Patient is 49 y/o female who Systems resides on [facility] with . Patient endorses and coworkers as supports. School/Work Patient works at the [employer] on [facility]. Legal Concerns Legal Matters - Outstanding Issues None reported Mental Status Orientation (Person/Place/Time) A/Ox4 Stated Mood excruciating pain Affect (Congruent with Mood?) euthymic, full range, congruent with mood Thought Content - Specify/Describe none reported Obsessions, Delusions, Hallucinations Thought Processes (Wceobbl-Eyrjdetp-Vakd None reported Hccjnuca-Zospbqlz-Yayvxldgme- Yfvoqoennfsotn-Ctcfsra-Hfpjvjicgaaw- Thought Blocking) Speech (Bkbpoe-Iigz-Aukezli-Rapid-Soft- normal Loud-Pressured) Motor (Sgmuky-Pkuvjibbg-Qwhy-Other) normal Insight (Pqxz-Jjav-Tgvj/Limited) fair Judgement (Xtsc-Raye-Zfch/Limited) fair Impulse Control (Adequate-Impaired) adequate Memory (Whofgwlut-Faizpc-Rdshom, intact, not formally assessed Impaired-Intact) Concentration (Intact-Impaired) intact Attention (Intact-Impaired) intact Behavior (Appropriate-Inappropriate) appropriate Additional Comment Patient presents as calm, cooperative and communicative. Risk Assessment Suicidal Ideation (Plan) No Homicidal Ideation (Plan) No Intervention Intervention BAKER BREAD enters room to meet with patient. Patient endorses that she had a PCP appt today and PCP recommended that patient come to the ED to rule out concerns of pancreatitis and ulcers and concern for ETOH withdrawal. Patient endorses interest in detox. Patient has no hx in detox, inpatient, outpatient or AA services. Patient endorses that her friends have provided her resources and had an intervention with her the other day. Patient endorses daily ETOH use last use was yesterday afternoon. Patient states that she uses marijuana gummies at night for sleep but patient struggles with sleep. Patient endorses concern for Anxiety and depression, denies any current rx. Patient endorses interest in detox. Awaiting medical clearance. BAKER BREAD provides patient with resources for outpatient [facility] resources, AA meetings, [facility] meetings and detox facilities. It is the opinion of this BAKER BREAD that patient would benefit from detox upon medical clearance. Plan RA Plan Awaiting medical clearance at this time, ED team to support patient in seeking detox, detox contact information provided to patient. Patient to f/u with resources provided. KARIE Chopra
[2024-12-02] MEDS: PHENobarbital 65 MG/ML VIAL 260 MG IV (16:22)
--- NOTE | 2024-12-02 17:20 | ED.GENADULT ---
HPI - General Adult General Chief complaint: Abdominal Pain Stated complaint: Vomiting, Nausea Time Seen by Provider: 12/02/24 16:16 Source: patient and family Mode of arrival: Ambulatory Limitations: no limitations History of Present Illness HPI narrative: 49-year-old female history of alcohol use, hypothyroidism, prior gastric sleeve, GI ulcers who presents with complaint of abdominal pain and nausea or vomiting. Patient states she has been drinking 1-2 boxes of wine nightly since about August. States 1 of the triggers was not her mom in April. Patient states today she was supposed to follow up with the primary care but started having nausea or vomiting throughout the morning even though she would need anything had upper GI pain which was persistent. Patient states nausea vomiting is improved now still has some upper epigastric discomfort. Has chronic diarrhea which she states has not changed. No fevers. States she was pretty sweaty this morning. No chest pain or shortness of breath. No syncope. Patient states she saw her primary care who evaluated send her here to be evaluated for pancreatitis and also see about possible detox bed. Patient states she is on losartan/HCTZ for medication, levothyroxine, omeprazole, gabapentin. States an allergy to penicillin. States prior surgeries or gastric sleeve, cholecystectomy and x2. No tobacco, alcohol daily, occasional marijuana gummies, no IV or other recreational drugs. Hannahvíctor locke skin gonzalo is her primary care on [facility] where she lives with her . Related Data Home Medications Medication Instructions Recorded Confirmed aspirin 81 mg tablet,delayed 81 mg PO DAILY 12/04/21 12/02/24 release calcium carbonate (Tums) 200 mg PO TID 12/04/21 12/02/24 lidocaine 5 % topical patch patch topical DAILY 08/15/24 12/02/24 Previous Rx's Medication Instructions Recorded acetaminophen 500 mg capsule 1,000 mg (2 x 500 mg) PO QID PRN 12/25/22 pain #60 caps gabapentin 100 mg capsule 100 mg PO TID PRN pain #90 caps 01/07/24 ipratropium 20 mcg-albuterol 100 1 puff inhalation Q6H #4 grams 04/27/24 mcg/actuation mist for inhalation (Combivent Respimat) fluticasone propionate 115 2 puff inhalation BID #12 grams 06/02/24 mcg-salmeterol 21 mcg/actuation HFA inhaler (Advair HFA) losartan 100 1 tab PO DAILY blood pressure. 07/08/24 mg-hydrochlorothiazide 12.5 mg take every day even if normal. tablet (Hyzaar) #90 tabs ibuprofen 800 mg tablet 800 mg PO Q8H PRN pain #90 tabs 08/05/24 methocarbamol 750 mg tablet 750 mg PO Q8H muscle spasm #60 tabs 08/05/24 gabapentin 100 mg capsule See Rx Instructions .Route 08/15/24 .COMPLEX PRN nerve pain #90 caps omeprazole 40 mg capsule,delayed 40 mg PO DAILY stomach #90 caps 08/15/24 release thiamine HCl (vitamin B1) 100 mg 100 mg PO DAILY take every day for 08/15/24 capsule brain function #90 caps progesterone micronized 100 mg 200 mg (2 x 100 mg) PO BEDTIME 10/21/24 capsule sleep #180 caps topiramate 100 mg tablet See Rx Instructions .Route 10/21/24 .COMPLEX stop 50mg tablet #60 tabs levothyroxine 200 mcg capsule 200 mcg PO DAILY for thyroid #90 11/23/24 caps Allergies Allergy/AdvReac Type Severity Reaction Status Date / Time naltrexone AdvReac Intermediate Nausea Verified 12/02/24 14:07 Penicillins AdvReac Unknown RASH AND Verified 12/02/24 14:07 OTHER NONSPECIFIC SKIN ERUPTION Review of Systems Review of Systems ROS Unobtainable: All systems reviewed & are unremarkable except as noted in HPI and below Patient History Medical History Hyperglycemia Nausea Renal insufficiency Acquired hypothyroidism Fibromyalgia Chicken pox Anemia Irritable bowel disease History of asthma Surgical History [place] teeth extracted H/O bariatric surgery Anesthesia History of mandibular surgery (~1988) History of eye surgery (~1976) History of cholecystectomy (~2001) S/P removal of left ovary (~2003) History of section History of hysterectomy for benign disease H/O: hysterectomy (~2003) Family History Father Prostate cancer History of heart disease S/P triple vessel bypass Vocal cord disease Mother Hyperlipidemia History of heart attack History of heart disease Brother Borderline schizophrenia Mental health problem Grandfather History of heart disease History of heart attack Grandmother Colon cancer Grandfather No problems noted. Social History household members: significant other alcohol intake frequency: a few times a week Alcohol type: wine Exam Narrative Exam Narrative: GENERAL: Alert and oriented x three, female in mild distress HEENT: Head normocephalic, atraumatic, EOMI, pupils reactive, face symmetric, moist mucous membranes NECK: Supple, full range of motion CARDIOVASCULAR: Regular rate and rhythm without murmurs, rubs or gallops. RESPIRATORY: Breath sounds equal bilaterally, no wheezes rales or rhonchi. ABDOMEN: Soft, mild epigastric tenderness. Normoactive bowel sounds all 4 quadrants. No guarding or rebound, rigidity, no mass : No CVA tenderness EXTREMITIES: Normal range of motion, no clubbing or edema. Neurovascularly intact NEUROLOGICAL: Cranial nerves II through XII grossly intact. Moving all extremities SKIN: Warm, dry, no petechiae, no rashes or lesions. Initial Vital Signs Initial Vital Signs: Vital Signs Temperature 98 F 12/02/24 14:07 Pulse Rate 79 12/02/24 14:07 Respiratory Rate 16 12/02/24 14:07 Blood Pressure 189/103 H 12/02/24 14:07 Pulse Oximetry 99 12/02/24 14:07 Oxygen Delivery Method Room Air 12/02/24 14:07 Course Orders Ordered: Discontinued Medications Hydrochlorothiazide (Hydrochlorothiazide 25 Mg Tablet) 12.5 mg PO NOW ONE Stop: 12/02/24 18:12 Last Admin: 12/02/24 18:36 Dose: 12.5 mg Documented By: Acetaminophen (Ofirmev) 1,000 mg in 100 mls @ 400 mls/hr IV NOW ONE Stop: 12/02/24 18:08 Last Infusion: 12/02/24 18:42 Dose: Infused Documented By: Admin: 12/02/24 18:09 Dose: 400 mls/hr Documented By: Losartan Potassium (Losartan 50 Mg Tablet) 100 mg PO NOW ONE Stop: 12/02/24 18:12 Last Admin: 12/02/24 18:36 Dose: 100 mg Documented By: Ondansetron HCl (Ondansetron 4 Mg/2 Ml Inj) 4 mg IV NOW PRN PRN Reason: Nausea And Vomiting Last Admin: 12/02/24 14:36 Dose: 4 mg Documented By: Ondansetron HCl (Ondansetron 4 Mg Odt) 4 mg PO NOW PRN PRN Reason: Nausea And Vomiting Phenobarbital (Phenobarbital 65 Mg/Ml Vial) 260 mg IV NOW ONE Stop: 12/02/24 16:18 Last Admin: 12/02/24 16:22 Dose: 260 mg Documented By: Vital Signs Vital signs: Vital Signs - 8 hr 12/02/24 14:07 12/02/24 14:30 12/02/24 14:32 Temperature 98 F Pulse Rate 79 82 84 Respiratory Rate 16 Blood Pressure 189/103 H Pulse Oximetry 99 100 100 Oxygen Delivery Method Room Air 12/02/24 14:32 12/02/24 15:00 12/02/24 15:00 Temperature Pulse Rate 86 Respiratory Rate Blood Pressure 183/92 H 173/81 H Pulse Oximetry 97 Oxygen Delivery Method 12/02/24 15:30 12/02/24 15:30 12/02/24 16:00 Temperature Pulse Rate 87 Respiratory Rate Blood Pressure 176/81 H 182/84 H Pulse Oximetry 97 Oxygen Delivery Method Room Air 12/02/24 16:00 12/02/24 16:09 12/02/24 16:09 Temperature Pulse Rate 82 77 Respiratory Rate Blood Pressure 178/87 H Pulse Oximetry 99 99 Oxygen Delivery Method 12/02/24 16:30 12/02/24 16:31 12/02/24 16:31 Temperature Pulse Rate 71 66 Respiratory Rate Blood Pressure 198/149 H Pulse Oximetry 100 100 Oxygen Delivery Method 12/02/24 16:49 12/02/24 16:49 12/02/24 17:00 Temperature Pulse Rate 84 Respiratory Rate Blood Pressure 165/82 H 160/83 H Pulse Oximetry 100 98 Oxygen Delivery Method Room Air 12/02/24 17:00 12/02/24 17:30 12/02/24 17:30 Temperature Pulse Rate 80 89 Respiratory Rate Blood Pressure 171/85 H Pulse Oximetry 98 98 Oxygen Delivery Method 12/02/24 18:00 12/02/24 18:00 Temperature Pulse Rate 84 Respiratory Rate Blood Pressure 162/79 H Pulse Oximetry 97 Oxygen Delivery Method Medical Decision Making Lab Data 12/02/24 14:30 12/02/24 14:30 Labs: Lab Results 12/02/24 12/02/24 Range/Units 14:30 17:30 WBC 8.2 (4.5-11.0) X10^3/uL RBC 3.96 L (4.0-5.2) X10^6/uL Hgb 13.8 (12.0-16.0) g/dL Hct 40.1 (36-46) % MCV 101.2 H (80-100) fL MCH 34.8 H (26-34) PG MCHC 34.4 (30-36) % RDW 13.6 (11.6-14.8) % Plt Count 278 (150-400) X10^3/uL Neut % (Auto) 72.0 (50-75) % Lymph % (Auto) 22.3 L (25-40) % [place] % (Auto) 5.0 (3-14) % Eos % (Auto) 0.1 L (2-4) % Baso % (Auto) 0.6 (0-2) % Neut # (Auto) 5900 (5547-0538) /uL Lymph # (Auto) 1800 (9924-6075) /uL [place] # (Auto) 400 (0-900) /uL Eos # (Auto) 0 (0-450) /uL Baso # (Auto) 100 (0-100) /uL Sodium 139 (137-145) mmol/L Potassium 4.0 (3.4-5.1) mmol/L Chloride 102 (98-107) mmol/L Carbon Dioxide 27 (22-32) mmol/L BUN 20 H (7-17) mg/dL Creatinine 0.79 (0.52-1.04) mg/dL Estimated GFR > 60 (>60) mL/min BUN/Creatinine Ratio 25.3 H (6-22) Glucose 109 H (70-99) mg/dL Calcium 11.8 H (8.4-10.2) mg/dL Total Bilirubin 1.0 (0.2-1.3) mg/dL AST 89 H (14-36) IU/L ALT 59 H (<35) IU/L Alkaline Phosphatase 233 H (38-126) U/L Total Protein 8.4 H (6.3-8.2) g/dL Albumin 5.0 (3.5-5.0) g/dL Globulin 3.4 (1.7-4.1) g/dL Albumin/Globulin Ratio 1.5 (1.0-2.8) Lipase 51 (23-300) U/L U Opiates 300ng/mL cut Positive H (Negative) Ur Oxycodone Screen Negative (Negative) Urine Methadone Screen Negative (Negative) Ur Barbiturates Screen Negative (Negative) U Tricyclic Antidepress Negative (Negative) Ur Phencyclidine Scrn Negative (Negative) Ur Amphetamines Screen Negative (Negative) U Methamphetamines Scrn Negative (Negative) Ur MDMA Scrn (Ecstasy) Negative (Negative) U Benzodiazepines Scrn Negative (Negative) Urine Cocaine Screen Negative (Negative) U Marijuana (THC) Screen Negative (Negative) Urine pH Normal (Normal) Urine Specific [place] Normal (Normal) Ethyl Alcohol < 10 ( - 10) mg/dL Ur Creatinine Normal (Normal) Urine Dip Bedside Urine Glucose Negative Bedside Urine Bilirubin - Negative Bedside Urine Ketone +/- 5 Urine Specific [place] 1.030 Bedside Urine Occult Blood - Negative Bedside Urine pH 6.0 Bedside Urine Protein - Negative Bedside Urine Urobilinogen - Negative Bedside Urine Nitrite - Negative Bedside Urine Leukocytes - Negative Esterase Point of care testing: Urine Dip Bedside Urine Glucose Negative Bedside Urine Bilirubin - Negative Bedside Urine Ketone +/- 5 Urine Specific [place] 1.030 Bedside Urine Occult Blood - Negative Bedside Urine pH 6.0 Bedside Urine Protein - Negative Bedside Urine Urobilinogen - Negative Bedside Urine Nitrite - Negative Bedside Urine Leukocytes - Negative Esterase ECG Data Attestation: I personally reviewed and interpreted this ECG as follows: Prior ECG tracings: not available for review Interpretation: Sinus rhythm rate of 72 [place] 154 QRS 80 QTC of 431, no acute ST elevation depression. No prior for comparison. MDM Narrative Medical decision making narrative: Labs show white count 8.2, hemoglobin of 13 platelets of 278. Electrolytes are appropriate BUN 20 creatinine 0.79 glucose is 109 calcium is 11.8, AST is 89 ALT is 59 alk-phos is 223 bilirubin is 1, lipase is 51. ETOH is less than 10. Urine positive for opiates otherwise negative. Point of care urine is negative. EKG shows sinus rhythm, rate of 72. No priors for comparison. CT abdomen pelvis, patient was small hiatal, appendix no other acute changes gastric sleeve surgery noted on her imaging. Patient's CIWA score is 4 prior to phenobarbital. Patient had Zofran and phenobarbital and acetaminophen. She was also given her home blood pressure medication which she was thinks she threw up this morning. Patient expresses interest inpatient detox. Will seek beds. Patient notes phenobarbital did seem to be quite helpful. Patient is currently medically cleared. Updated patient on her CT findings. After discussion she prefers to return home does not wish to seek inpatient detox at this time. Discussed return precautions. Discharge Plan Departure Patient Disposition: Home Clinical Impression: Alcohol withdrawal, Nausea & vomiting Instructions: Alcohol Withdrawal Activity Restrictions/Additional Instructions: I do think he would benefit from attending detox. If you change your mind in the future you can call to facilities in the area to find a bed. There are outpatient and inpatient options both available. Can also chat with your primary care physician who can direct you and help you with resources as well. Please return if you have new or worsening abdominal back or flank pain, persistent vomiting, black or bloody stools, lightheadedness or passing out or other new or concerning changes. Prescriptions: No Action fluticasone propion-salmeterol [Advair HFA] 115-21 mcg/actuation HFA aerosol inhaler 2 puff inhalation BID Qty: 12 0RF Rx Instructions: Use with spacer as directed. losartan-hydrochlorothiazide [Hyzaar] 100-12.5 mg tablet 1 tab PO DAILY Qty: 90 0RF Rx Instructions: for BP every day- even if BP normal, take it every day. levothyroxine 200 mcg capsule 200 mcg PO DAILY Qty: 90 1RF aspirin 81 mg tablet,delayed release (DR/EC) 81 mg PO DAILY calcium carbonate [Tums] 200 mg calcium (500 mg) tablet,chewable 200 mg PO TID ibuprofen 800 mg tablet 800 mg PO Q8H PRN (Reason: pain) Qty: 90 0RF Rx Instructions: alternate with tylenol methocarbamol 750 mg tablet 750 mg PO Q8H Qty: 60 1RF lidocaine 5 % adhesive patch,medicated topical DAILY thiamine HCl (vitamin B1) 100 mg capsule 100 mg PO DAILY Qty: 90 3RF omeprazole 40 mg capsule,delayed release(DR/EC) 40 mg PO DAILY Qty: 90 1RF gabapentin 100 mg capsule See Rx Instructions .ROUTE .COMPLEX PRN (Reason: nerve pain) Qty: 90 3RF Rx Instructions: start with 1 tab po TID for 2 days, then, if not helping --increase to try 2 tablets 3 times/day if needed. in 2 more days -- can increase to 3 tabs TID if needed. use lowest effective dose and let me know your dose so I can reorder. topiramate 100 mg tablet See Rx Instructions .ROUTE .COMPLEX Qty: 60 12RF Rx Instructions: 50 mg (1/2 tab) po Qam and 100 mg (1 tab ) po QHS progesterone micronized 100 mg capsule 200 mg PO BEDTIME Qty: 180 3RF acetaminophen 500 mg capsule 1,000 mg PO QID PRN (Reason: pain) Qty: 60 0RF gabapentin 100 mg capsule 100 mg PO TID PRN (Reason: pain) Qty: 90 11RF Combivent Respimat 20-100 mcg/actuation mist 1 puff inhalation Q6H Qty: 4 2RF Referrals: Hannah Juarez MD [Primary Care Provider] - Stand Alone Forms: Patient Portal/API/Survey
[2024-12-02 17:49] LABS: UR Morphine/Opiate cutoff 300 Positive (Negative); Ur Creatinine Normal (Normal); Ur Specific Gravity Normal (Normal); Urine Amphetamines Negative (Negative); Urine Barbiturates Negative (Negative); Urine Benzodiazepines Negative (Negative); Urine Cocaine Negative (Negative); Urine MDMA Negative (Negative); Urine Methadone Negative (Negative); Urine Methamphetamines Negative (Negative); Urine Oxycodone Negative (Negative); Urine Phencyclidine Negative (Negative); Urine Tetrahydrocannabinol Negative (Negative); Urine Tricyclic Antidepressant Negative (Negative); Urine pH Normal (Normal)
--- NOTE | 2024-12-02 17:54 | DI.CT.S_ITS ---
PROCEDURE: CT ABDOMEN PELVIS W CON INDICATIONS: etoh abuse, vomiting, hx gastric sleeve, epigastric pain TECHNIQUE: After the administration of intravenous contrast, axial sections acquired from the lung bases to the pubic symphysis. Coronal and sagittal reformats were performed. For radiation dose reduction, the following was used: automated exposure control, adjustment of mA and/or kV according to patient size. COMPARISON: [facility], CT, CT ABDOMEN PELVIS W CON, 09/05/2021, 13:12. FINDINGS: Image quality: Diagnostic. Lower Chest: Small hiatal hernia. ABDOMEN: Liver: No solid mass. Coarse calcification, likely indicating prior minor infection. Gallbladder: Absent. Biliary ducts: No biliary dilation. Pancreas: No ductal dilation. Spleen: Size is within normal limits. Adrenal Glands: No adrenal nodules. Kidneys and Ureters: No hydronephrosis. No solid mass. No complex renal cystic lesion which requires follow up. Stomach and Bowel: Normal colonic caliber, without significant wall thickening. Normal appendix. Gastric sleeve surgery. Peritoneum: No abnormal intraperitoneal fluid. No free air. Ventral Wall: No significant ventral hernia. Abdominal Nodes: No retroperitoneal or mesenteric adenopathy by size criteria. Vessels: Aorta and inferior vena cava are normal in size. PELVIS: Pelvic Organs: Unremarkable. Bladder: No bladder wall thickening, accounting for underdistention. Pelvic Nodes: No enlarged lymph nodes. Miscellaneous: No inguinal hernias are seen. Bones: No aggressive osseous abnormality. IMPRESSION: No acute abnormality. Normal appendix. No diverticular disease or obstruction. No nephrolithiasis or hydronephrosis. Gastric sleeve surgery with small hiatal hernia. Dictated by: Charles Hughes M.D. on 12/02/2024 at 18:16 Approved by: Charles Hughes M.D. on 12/02/2024 at 18:18
[2024-12-02] MEDS: ACETAMINOPHEN IV 1,000 MG/100 ML VIAL 400 MG IV (18:09)
[2024-12-02] MEDS: LOSARTAN 50 MG TABLET 100 MG PO (18:36)
[2024-12-02] MEDS: hydroCHLOROthiazide 25 MG TABLET 12.5 MG PO (18:36)
== END 2024-12-02 18:42 | disposition home or self-care (01) ==
PROVIDERS: Emergency Provider Emergency Medicine; PCP Family Medicine
DX: F10.239 Alcohol dependence with withdrawal, unspecified (principal); R11.2 Nausea with vomiting, unspecified
CPT/HCPCS: 36415; 74177; 80053; 80305; 80320; 81003; 83690; 85025; 93005; 96365; 96375; 99284; J0131; J2405; J2560; Q9967

== ENCOUNTER → 2025-05-09 12:03 | Outpatient (CLI) | payer BC, SELFPAY ==
[2025-05-09 19:15] LABS: Hematocrit 38.0 % (36-46); Hemoglobin 13.1 g/dL (12.0-16.0); Mean Corpuscular HGB Conc 34.4 % (30-36); Mean Corpuscular Hemoglobin 34.5 PG (26-34); Mean Corpuscular Volume 100.2 fL (80-100); Platelet Count 367 X10^3/uL (150-400)
[2025-05-09 19:25] LABS: HEMOLYSIS 16 (0-50); Iron 128 ug/dL (37-170)
[2025-05-09 19:45] LABS: Percent Iron Saturation 40 % (15-50); Total Iron Binding Capacity 318 ug/dL (265-497); Transferrin 301 mg/dL (206-381)
[2025-05-09 20:04] LABS: Ferritin 38 ng/mL (11-264)
[2025-05-09 20:38] LABS: Folate 9.5 ng/mL (2.76-20.0); Vitamin B12 255 pg/mL (239-931)
== END ==
PROVIDERS: PCP Family Medicine; Visit Provider Family Medicine
DX: D64.9 Anemia, unspecified (principal); R10.9 Unspecified abdominal pain; G89.29 Other chronic pain; Z98.84 Bariatric surgery status; K21.9 Gastro-esophageal reflux disease without esophagitis; K22.11 Ulcer of esophagus with bleeding
CPT/HCPCS: 82607; 82728; 82746; 83540; 83550; 85027

== ENCOUNTER → 2025-06-05 13:24 | Outpatient (CLI) | payer BC, SELFPAY ==
[2025-06-05 19:04] LABS: Hematocrit 35.6 % (36-46); Hemoglobin 12.3 g/dL (12.0-16.0); Mean Corpuscular HGB Conc 34.5 % (30-36); Mean Corpuscular Hemoglobin 33.3 PG (26-34); Mean Corpuscular Volume 96.5 fL (80-100); Platelet Count 355 X10^3/uL (150-400)
[2025-06-05 19:26] LABS: Alanine Aminotransferase 37 IU/L (<35); Albumin 4.1 g/dL (3.5-5.0); Albumin Globulin Ratio 1.5 (1.0-2.8); Alkaline Phosphatase 160 U/L (38-126); Blood Urea Nitrogen 17 mg/dL (7-17); Calcium 9.9 mg/dL (8.4-10.2); Carbon Dioxide 27 mmol/L (22-32); Chloride 103 mmol/L (98-107); Estimated Glomerular Filt Rate > 60 mL/min (>60); Globulin 2.7 g/dL (1.7-4.1); Glucose 99 mg/dL (70-99); HEMOLYSIS 20 (0-50); Potassium 3.9 mmol/L (3.4-5.1); Sodium 138 mmol/L (137-145); Total Protein 6.8 g/dL (6.3-8.2)
[2025-06-05 19:51] LABS: TSH w/ Reflex to FT4 0.03 uIU/mL (0.47-4.68)
[2025-06-05 20:32] LABS: Free T4, Direct Thyroxine 1.42 ng/dL (0.78-2.19)
== END ==
PROVIDERS: PCP Family Medicine; Visit Provider Family Medicine
DX: F10.20 Alcohol dependence, uncomplicated (principal); D64.9 Anemia, unspecified; N17.9 Acute kidney failure, unspecified; M62.82 Rhabdomyolysis; I10 Essential (primary) hypertension; E03.9 Hypothyroidism, unspecified
CPT/HCPCS: 80053; 84439; 84443; 85027